=== PATIENT | female | born 1950 | race Caucasian/White ===

== ENCOUNTER 2016-12-10 12:09 | Emergency (ER) | payer OTHER, MEDICAID ==
[~2016-12-10] VITALS: Ht 152.4 cm; Wt 65.8 kg
[~2016-12-10 12:09] MED LIST: ECOTRIN325 MG PO; GLUCOPHAGE1000 MG PO; MOTRIN800 MG PO; [UNRECOGNIZED DRUG - OTHER] PO
[2016-12-10 12:18] VITALS: BP 127/76
--- NOTE | 2016-12-10 12:22 | NUR ---
Patient transferred to bed 3 via wheelchair by tech, accompanied by family. RN evaluating patient at bedside.
--- NOTE | 2016-12-10 12:25 | NUR ---
PT BIB SON FOR EVALUATION OF HEADACHE X2 DAYS. HX DM, HTN, ARTHRITIS; DENIES V/D; SKIN IS PINK/WARM/DRY; AAOX4 WITH EVEN AND STEADY GAIT; LUNGS CLEAR BL; HR EVEN AND REGULAR; PT DENIES ANY FEVER, CP, SOB, OR COUGH AT THIS TIME; PATIENT STATES PAIN OF 8/10 AT THIS TIME; VSS; PATIENT POSITIONED FOR COMFORT; HOB ELEVATED; BEDRAILS UP X2; BED DOWN. ER MD MADE AWARE OF PT STATUS.
--- NOTE | 2016-12-10 12:41 | NUR ---
PT TAKEN TO CT FOR THE HEAD VIA WHEEL CHAIR BY TUFTER OPERATOR MELANY
[2016-12-10] MEDS ORDERED: ONDANSETRON 4 MG ODT PO ONE (13:10)
[2016-12-10] MEDS ORDERED: fentaNYL 0.05 MG/ML VIAL IM ONE (13:10)
[2016-12-10] MEDS ORDERED: NACL 0.9% 500 ML IV ONE (13:41)
--- NOTE | 2016-12-10 14:00 | NUR ---
RECIEVED FROM LAB BS 488 DR DELGADO NOTIFIED
[2016-12-10] MEDS ORDERED: fentaNYL 0.05 MG/ML VIAL IVP ONE (14:15)
--- NOTE | 2016-12-10 14:20 | NUR ---
given fentanyl 50mcg ivp,wasted 50mcg.showed remaining med. in vial to melissa lopez rn.
[2016-12-10] MEDS ORDERED: INSULIN HUMAN REGULAR 100 UNITS/ML 10 ML VIAL IVP ONE (14:30)
[2016-12-10 14:38] VITALS: BP 141/88
[2016-12-10] MEDS ORDERED: INSULIN HUMAN REGULAR 100 UNITS/ML 10 ML VIAL SUBQ ONE (15:25)
--- NOTE | 2016-12-10 15:38 | NUR ---
BS 357 AFTER INSULIN ADMINISTRATION, PT REFUSE TO WAIT, PT SAYS WILL CHECK HER BLOOD SUGAR AT HOME AND WILL SELF ADMINISTER INSULIN AT HOME IF NEEDED PER PT, DR DELGADO NOTIFIED
--- NOTE | 2016-12-10 15:38 | NUR ---
Patient discharged with B/S OF 357. PT REFUSE TO WAIT AFTER INSULIN ADMINISTRATION DUE TO HER RIDE IS HERE NOW, WILL CHECK HER BS AT HOME AND WILL SELF ADMINISTER INSULIN AT HOME PER PT. DR DELGADO NOTIFIED. Written and verbal after care instructions given and explained. Patient alert, oriented and verbalized understanding of instructions. Ambulatory with steady gait. All questions addressed prior to discharge. ID band removed. Patient advised to follow up with PMD. Rx of TRAMADOL given. Patient educated on indication of medication including possible reaction and side effects. Opportunity to ask questions provided and answered.
== END 2016-12-10 15:38 | disposition home or self-care (01) ==
LOC: MED 12:09
DX: S16.1XXA Strain of muscle, fascia and tendon at neck level, initial encounter (principal); S29.012A Strain of muscle and tendon of back wall of thorax, initial encounter; I10 Essential (primary) hypertension; E11.65 Type 2 diabetes mellitus with hyperglycemia; Z88.0 Allergy status to penicillin; Z79.82 Long term (current) use of aspirin; X58.XXXA Exposure to other specified factors, initial encounter; Y93.89 Activity, other specified; Y92.89 Other specified places as the place of occurrence of the external cause; Y99.8 Other external cause status
CPT/HCPCS: 36415; 70450; 71010; 80053; 82009; 82948; 85025; 96361; 96372; 96374; 99285; J1815; J7030; Q0092; S0119

== ENCOUNTER 2017-05-15 23:55 | Emergency (ER) | payer MEDICARE, MEDICAID ==
[~2017-05-15] VITALS: Ht 157.5 cm; Wt 67.1 kg
[~2017-05-15 23:55] MED LIST changes: +ASPI-1052 PO; -ECOTRIN325 MG PO; -GLUCOPHAGE1000 MG PO; +IBUP-974 PO; +METF1000 PO; -MOTRIN800 MG PO
[2017-05-16 00:02] VITALS: BP 158/87
--- NOTE | 2017-05-16 00:11 | NUR ---
PT. AMBULATES TO ER BED 6
--- NOTE | 2017-05-16 00:17 | NUR ---
66 Y/O F W/C/O DIZZINESS, NAUSEA X 3 DAYS AND VOMITING X TODAY. PT STATES FELL X 1999 LAST NIGHT WHILE TRYING TO USE THE RESTROOM, DENIES ANY LOC, C/O R KNEE, R SHOULDER PAIN AND LIGHT HEADACHE X LAST NIGHT S/P FALL. ON MONITOR, ER MADE AWARE.
--- NOTE | 2017-05-16 00:35 | NUR ---
Patient being evaluated by Dr. Thomas at bedside.
[2017-05-16] MEDS ORDERED: NACL 0.9% 1,000 ML IV ONE (00:50)
[2017-05-16 00:56] LABS: WHITE BLOOD COUNT (AUTO) 8.8 K/uL (4.8-10.8)
--- NOTE | 2017-05-16 01:04 | NUR ---
PT TAKEN TO CT
[2017-05-16 01:08] LABS: PROTHROMBIN TIME 10.4 secs (10.8-13.4)
[2017-05-16 01:16] LABS: ALBUMIN 3.8 g/dL (3.4-5.0); ANION GAP 14.2 (8-16); CARBON DIOXIDE 25.6 mmol/L (21-32); CREATININE 0.8 mg/dL (0.6-1.3); HEMATOCRIT 42.5 % (36-48); HEMOGLOBIN 13.7 g/dL (12.0-16.0); MEAN CORPUSCULAR HEMOGLOBIN 28 pg (27-31); MEAN CORPUSCULAR HGB CONC 32 g/dL (33-37); MEAN CORPUSCULAR VOLUME 88 fL (80-94); PLATELET COUNT (AUTO) 265 K/uL (140-450); POTASSIUM 3.8 mmol/L (3.5-5.1); RED BLOOD CELL COUNT(AUTO) 4.83 MIL/uL (4.20-5.40); RED CELL DISTRIBUTION WIDTH 12.2 % (11.6-13.7); TOTAL BILIRUBIN 0.4 mg/dL (0.0-1.0)
--- NOTE | 2017-05-16 01:25 | NUR ---
PT RETURN FROM CT
[2017-05-16] MEDS ORDERED: INSULIN HUMAN REGULAR 100 UNITS/ML 10 ML VIAL SUBQ ONE (01:30)
[2017-05-16 01:31] LABS: APPEARANCE,URINE CLEAR (CLEAR); BILIRUBIN,URINE NEGATIVE (NEGATIVE); BLOOD, URINE TRACE-L (NEGATIVE); COLOR,URINE YELLOW (YELLOW); LEUKOCYTE ESTERASE ,URINE NEGATIVE (NEGATIVE); NITRITE, URINE NEGATIVE (NEGATIVE); UGLUCOSE 3+ (NEGATIVE)
[2017-05-16] MEDS ORDERED: ONDANSETRON 4 MG/2 ML VIAL IVP ONE ×2 (01:35→02:55)
[2017-05-16 01:36] LABS: LYMPHOCYTES % (MANUAL) 27 % (20-46); MONOCYTES % (MANUAL) 5 % (5-12)
[2017-05-16 01:45] LABS: RBC,URINE 0-5 (RARE) /HPF (0-5); YEAST,URINE Rare /HPF (None Seen)
--- NOTE | 2017-05-16 02:17 | NUR ---
Patient appears to be resting comfortably in bed. Vital Signs within normal limits. Respirations even and unlabored.
[2017-05-16 03:20] VITALS: BP 161/84
--- NOTE | 2017-05-16 03:20 | NUR ---
Patient discharged with v/s stable. Written and verbal after care instructions given and explained. Patient alert, oriented and verbalized understanding of instructions. Wheel Chair Assisted with by caregiver. All questions addressed prior to discharge. ID band removed. Patient advised to follow up with PMD IN 2-3 DAYS. Rx of ZOFRAN, AND MECLIZINE given. Patient educated on indication of medication including possible reaction and side effects. Opportunity to ask questions provided and answered.
== END 2017-05-16 03:20 | disposition home or self-care (01) ==
LOC: MED 23:55
DX: S09.8XXA Other specified injuries of head, initial encounter (principal); E11.65 Type 2 diabetes mellitus with hyperglycemia; I10 Essential (primary) hypertension; E78.5 Hyperlipidemia, unspecified; Z79.82 Long term (current) use of aspirin; Z79.899 Other long term (current) drug therapy; Z88.0 Allergy status to penicillin; W01.198A Fall on same level from slipping, tripping and stumbling with subsequent striking against other object, initial encounter; Y93.89 Activity, other specified; Y92.89 Other specified places as the place of occurrence of the external cause; Y99.8 Other external cause status
CPT/HCPCS: 36415; 70450; 80053; 81001; 85025; 85610; 87086; 96361; 96372; 96374; 96376; 99285; J1815; J2405

== ENCOUNTER 2017-07-24 21:23 | Inpatient (IN) | payer MEDICARE, MEDICAID ==
[~2017-07-24] VITALS: Ht 149.9 cm; Wt 64.0 kg
[2017-07-24 21:28] VITALS: BP 110/86
--- NOTE | 2017-07-24 21:57 | NUR ---
TO ER BED 3
--- NOTE | 2017-07-24 22:03 | NUR ---
66Y F BIB FAMILY C/O HEADACHE AND AB PAIN X 1 DAY WITH VOMITING. PT STATES HER INSULIN WAS JUST CHANGED SO SHE CANNOT RECALL THE NAME. PT DENIES ANY SOB/CP AT THE MOMENT. PT IS ALERT AND ORIENTED. PT WHEELCHAIR ASSISTED TO ER BED 3. PT BREATHING IS EVEN AND UNLABORED.
[2017-07-24] MEDS ORDERED: LISI2.5T12 PO (22:08)
[2017-07-24] MEDS ORDERED: ATOR20TA PO (22:08)
[2017-07-24] MEDS ORDERED: INSULIN HUMAN REGULAR 100 UNITS/ML 10 ML VIAL IVP ONE (22:10)
[2017-07-24] MEDS ORDERED: NACL 0.9% 1,000 ML IV ONE (22:10)
[2017-07-24 22:38] LABS: APPEARANCE,URINE SL CLOUDY (CLEAR); BILIRUBIN,URINE NEGATIVE (NEGATIVE); BLOOD, URINE TRACE-L (NEGATIVE); COLOR,URINE YELLOW (YELLOW); LEUKOCYTE ESTERASE ,URINE NEGATIVE (NEGATIVE); NITRITE, URINE POSITIVE (NEGATIVE); PH,URINE 5.5 (5.0-9.0); UGLUCOSE 3+ (NEGATIVE)
[2017-07-24 23:05] LABS: BASOPHILS # (AUTO) 0.1 K/uL (0.00-0.22); BASOPHILS % (AUTO) 1.8 % (0.0-2.0); EOSINOPHILS # (AUTO) 0.1 K/uL (0-0.4); HEMATOCRIT 36.2 % (36-48); HEMOGLOBIN 12.4 g/dL (12.0-16.0); LYMPHOCYTES # (AUTO) 1.1 K/uL (2.5-16.5); LYMPHOCYTES % (AUTO) 13.4 % (20.5-51.1); MEAN CORPUSCULAR HEMOGLOBIN 30 pg (27-31); MEAN CORPUSCULAR HGB CONC 34 g/dL (33-37); MEAN CORPUSCULAR VOLUME 86 fL (80-94); MONOCYTES # (AUTO) 0.3 K/uL (0.8-1.0); MONOCYTES % (AUTO) 3.8 % (1.7-9.3); NEUTROPHILS # (AUTO) 6.5 K/uL (1.8-7.7); PLATELET COUNT (AUTO) 221 K/uL (140-450); RED CELL DISTRIBUTION WIDTH 12.4 % (11.6-13.7); WHITE BLOOD COUNT (AUTO) 8.1 K/uL (4.8-10.8)
[2017-07-24 23:21] LABS: RBC,URINE 0-5 (RARE) /HPF (0-5); WBC,URINE 0-5 (RARE) /HPF (0-5)
[2017-07-24 23:22] LABS: YEAST,URINE Many /HPF (None Seen)
[2017-07-24 23:23] LABS: ANION GAP 15.9 (8-16); CARBON DIOXIDE 24.1 mmol/L (21-32); CREATININE 0.8 mg/dL (0.6-1.3)
[2017-07-24 23:29] LABS: ALBUMIN 2.9 g/dL (3.4-5.0); TOTAL BILIRUBIN 0.3 mg/dL (0.0-1.0)
[2017-07-25] MEDS: NACL 0.9% 1,000 ML IV SCH ×3 (00:26→23:42)
[2017-07-25] MEDS ORDERED: HYDROcodone/APAP 7.5/325 MG 1 TAB PO PRN (00:30)
[2017-07-25] MEDS ORDERED: ONDANSETRON 4 MG/2 ML VIAL IVP PRN (00:30)
[2017-07-25] MEDS ORDERED: ACETAMINOPHEN 325 MG TAB PO PRN (00:30)
[2017-07-25] MEDS ORDERED: DEXTROSE 50% 50 ML SYR IVP PRN (00:35)
[2017-07-25] MEDS ORDERED: FLUCONAZOLE 100 MG TAB PO ONE (00:45)
[2017-07-25] MEDS ORDERED: cefTRIAXone 1,000 MG VIAL ONE (00:50)
--- NOTE | 2017-07-25 00:50 | NUR ---
UNABLE TO DO EKG, PT STILL IN ER
--- NOTE | 2017-07-25 00:51 | NUR ---
Patient will be admitted to care of DR ROSADO. Admited to TELE 122B. Will go to room 122B. Belongings list completed. Report to ABBE FAUSTIN .
[2017-07-25 00:57] LABS: BARBITURATE, URINE NEG. ng/ml (NEG <=200); BENZODIAZEPINE, URINE NEG. ng/mL (NEG <=200); CANNABINOID, URINE NEG. ng/mL (NEG <=50); COCAINE, URINE NEG. ng/mL (NEG <=300); OPIATE, URINE NEG. ng/mL (NEG <=2000); PHENCYCLIDINE SCREEN,URINE NEG. ng/mL (NEG <=25)
[2017-07-25 01:00] VITALS: BP 114/73
--- NOTE | 2017-07-25 01:00 | NUR ---
PT ARRIVED FROM ER VIA GURNEY. PT IS AWAKE, ALERT AND ORIENTED X4. ON ROOM AIR. RESPIRATIONS EVEN AND UNLABORED. NO SIGNS OF ACUTE DISTRESS. UNSTEADY GATE. IV ACCESS INTACT, PATENT AND ASYMPTOMATIC. SKIN COLOR APPROPRIATE TO ETHNICITY, SKIN TEMP WARM TO TOUCH. MRSA NARES COLLECTED. PLAN OF CARE DISCUSSED, PT VERBALIZED UNDERSTANDING. BED IN LOW POSITION, BILATERAL HALF SIDE RAILS UP, CALL LIGHT WITHIN REACH, WILL CONTINUE TO MONITOR.
[2017-07-25 01:06] LABS: FREE T4 (FREE THYROXINE) 0.96 ng/dL (0.76-1.46); MAGNESIUM 1.4 mg/dL (1.8-2.4); THYROID STIMULATING HORMONE 1.54 uIU/mL (0.34-3.74)
--- NOTE | 2017-07-25 03:30 | NUR ---
ASSISTED PT TO THE RESTROOM. PT ABLE TO VOID. TOLERATED WELL, BACK IN BED. BED IN LOW POSITION, BILATERAL HALF SIDE RAILS UP, CALL LIGHT WITHIN REACH, WILL CONTINUE TO MONITOR.
[2017-07-25 04:00] VITALS: BP 122/66
[2017-07-25 06:08] LABS: BASOPHILS # (AUTO) 0.2 K/uL (0.00-0.22); BASOPHILS % (AUTO) 3.4 % (0.0-2.0); EOSINOPHILS # (AUTO) 0.1 K/uL (0-0.4); HEMATOCRIT 36.3 % (36-48); HEMOGLOBIN 12.3 g/dL (12.0-16.0); LYMPHOCYTES # (AUTO) 1.9 K/uL (2.5-16.5); LYMPHOCYTES % (AUTO) 28.1 % (20.5-51.1); MEAN CORPUSCULAR HEMOGLOBIN 30 pg (27-31); MEAN CORPUSCULAR HGB CONC 34 g/dL (33-37); MEAN CORPUSCULAR VOLUME 87 fL (80-94); MONOCYTES # (AUTO) 0.5 K/uL (0.8-1.0); MONOCYTES % (AUTO) 7.2 % (1.7-9.3); NEUTROPHILS # (AUTO) 4.1 K/uL (1.8-7.7); NEUTROPHILS % (AUTO) 60.3 % (42.2-75.2); PLATELET COUNT (AUTO) 225 K/uL (140-450); RED BLOOD CELL COUNT(AUTO) 4.15 MIL/uL (4.20-5.40); RED CELL DISTRIBUTION WIDTH 12.7 % (11.6-13.7); WHITE BLOOD COUNT (AUTO) 6.9 K/uL (4.8-10.8)
[2017-07-25 06:32] LABS: ANION GAP 10.4 (8-16); CREATININE 0.6 mg/dL (0.6-1.3); POTASSIUM 3.4 mmol/L (3.5-5.1)
[2017-07-25] MEDS: BLOOD GLUCOSE MONITORING 1 DEV DEV FS SCH ×4 (06:34→20:39)
[2017-07-25 06:37] LABS: MAGNESIUM 1.4 mg/dL (1.8-2.4); PHOSPHORUS 3.1 mg/dL (2.5-4.9)
[2017-07-25] MEDS: INSULIN LISPRO SLIDING SCALE 100 UNITS/ML VIAL SUBQ PRN ×4 (06:37→20:49)
--- NOTE | 2017-07-25 07:20 | NUR ---
ENDORSED PT TO AM NURSE FOR CONTINUITY OF CARE. PT IS IN STABLE CONDITION.
--- NOTE | 2017-07-25 07:25 | NUR ---
RECEIVED PT REPORT AT BEDSIDE FROM NIGHT NURSE. PT IS AAOX4 AND SHOWS NO S/S OF ACUTE DISTRESS RA. PT IS AROUSABLE TO NAME AND DENIES PAIN. PT SKIN IS INTACT. PT ON TELE MONITOR. IV NOTED ON THE LT AC WITH IVF'S INFUSING WELL. IV IS PATENT AND INTACT WITH NO SIGNS OF INFILTRATION. PT WAS EXPLAINED POC FOR TODAY AND VERBALIZE UNDERSTANDING. THE BED IS IN LOW POSITION WITH CALL LIGHT WITHIN REACH. ALL NEED'S MET AT THIS TIME. WILL CONTINUE TO MONITOR.
[2017-07-25 08:00] VITALS: BP 111/68
[2017-07-25] MEDS ORDERED: MAG SULF 2000 MG/WATER PREMIX 50 ML IV SCH (08:00)
[2017-07-25] MEDS ORDERED: POTASSIUM CHLORIDE 10 MEQ TABER PO SCH (08:00)
--- NOTE | 2017-07-25 08:30 | NUR ---
PT IS BEING SEE BY TECH
[2017-07-25] MEDS: metFORMIN 500 MG TAB PO SCH ×2 (08:47→16:41)
[2017-07-25] MEDS: DOCUSATE SODIUM 100 MG GELCAP PO SCH ×2 (08:48→20:40)
[2017-07-25] MEDS: LISINOPRIL 5 MG TAB PO SCH (08:48)
[2017-07-25] MEDS: LACTOBACILLUS RHAMNOSUS GG 1 EACH CAP PO SCH (08:48)
--- NOTE | 2017-07-25 08:50 | NUR ---
ADMINISTERED SCHEDULED MEDICATIONS. PT TOLERATED ACTIVITY WELL. PT MAGNESIUM IS INFUSING WELL.
--- NOTE | 2017-07-25 09:11 | NUR ---
PATIENT HAS BEEN SCREENED AND CATEGORIZED MODERATE NUTRITION RISK. PATIENT WILL BE SEEN WITHIN 3-5 DAYS OF ADMISSION. 07/27/17-07/29/[address]
--- NOTE | 2017-07-25 09:48 | NUR ---
CM NOTE PER MO OF [facility] PH# [phone] EXT [phone], REVIEWS SHOULD ONLY BE SENT TO [facility] FAX# [phone] AND FOR ANY DISCHARGE NEEDS TO FAX TO [facility] FAX# [phone]. SPOKE WITH JEAN-PAUL OF [facility] PH# [phone] AND SHE SAID [facility] DON'T NEED THE REVIEWS AND REVIEWS SHOULD ONLY BE SENT TO [facility]. INITIAL REVIEW FAXED TO [facility] [phone] ATTN: MALIA PH# [phone] EXT [phone].
--- NOTE | 2017-07-25 10:00 | NUR ---
PT BEING SEEN BY SHEET ROCK APPLICATOR
[2017-07-25 12:00] VITALS: BP 125/71
--- NOTE | 2017-07-25 12:30 | NUR ---
PT IS SLEEPING AND SHOWS NO S/S OF ACUTE DISTRESS ON ROOM AIR. PT DENIES PAIN. WILL CONTINUE TO MONITOR.
--- NOTE | 2017-07-25 14:10 | NUR ---
PT HAS FAMILY AT BEDSIDE AND SHOWS NO S/S OF ACUTE DISTRESS ON ROOM AIR. BED IN LOW POSITION WITH CALL LIGHT WITHIN REACH.
[2017-07-25] MEDS ORDERED: ASPIRIN 81 MG TAB.CHEW PO SCH (14:20)
--- NOTE | 2017-07-25 15:55 | NUR ---
SPOKE WITH SUGAR TRUCKER AT DR INES SEAMAN OFFICE AT [phone] FOR PATIENT'S ORDER FOR MEDICATION LIST. SUGAR TRUCKER STATED SHE WILL SEND OVER MEDICATION LIST THROUGH FAX.
[2017-07-25 16:00] VITALS: BP 117/70
--- NOTE | 2017-07-25 18:00 | NUR ---
PT IS RESTING AND SHOWS NO S/S OF ACUTE DISTRESS ON ROOM AIR. ALL OF PT'S NEEDS MET AT THIS TIME. WILL CONTINUE TO MONITOR.
--- NOTE | 2017-07-25 19:25 | NUR ---
PT REPORT GIVEN TO NIGHT NURSE AT BEDSIDE. PT ENDORSED IN STABLE CONDITION.
--- NOTE | 2017-07-25 19:30 | NUR ---
RECEIVE DPT IN STABLE CONDITION FROM AM NURSE. AWAKE,ALERT AND ORIENTED X4, LITHUANIAN SPEAKING. WITH FAMILY MEMBERS AT BEDSIDE. ON TELE MONITOR -SR. NO C/O ANY DISCOMFORT NOR PAIN NOTED. HAS IVF INFUSING WELL ON THE LT AC#20. PLAN OF CARE DISCUSSED AND VERBALIZED UNDERSTANDING. BED ON LOW POSITION. CALL LIGHT PLACED WITHIN EASY REACH. INSTRUCTED TO CALL IF NEED ASSISTANCE. WILL CONTINUE TO MONITOR.
[2017-07-25 19:45] VITALS: BP 113/63
--- NOTE | 2017-07-25 20:05 | NUR ---
IV ACCESS ON THE LT AC #20 INFILTRATED. DISCONTINUED. STARTED A NEW IV ON THE LT HAND $22. CLEAR AND PATENT.
[2017-07-25] MEDS: ATORVASTATIN 20 MG TAB PO SCH (20:40)
--- NOTE | 2017-07-25 20:49 | NUR ---
BLOOD SUGAR WAS CHECKED RESULT 177. INSULIN COVERAGE GIVEN. PROVIDED SOME SNACK. WILL CONTINUE WITH CURRENT PLAN OF CARE.
[2017-07-25] MEDS ORDERED: INSULIN DETEMIR 100 UNITS/ML 10 ML VIAL SUBQ SCH ×3 (21:00)
--- NOTE | 2017-07-25 21:30 | NUR ---
PT JUST FINISHED EATING CRACKERS AND MILK FOR SNACK TONIGHT.
[2017-07-26] VITALS: BP 118/67
--- NOTE | 2017-07-26 01:00 | NUR ---
SLEEPING AT THIS TIME. NO S/S OF ANY DISCOMFORT NOR PAIN NOTED.
[2017-07-26 04:00] VITALS: BP 132/74
--- NOTE | 2017-07-26 04:00 | NUR ---
SLEPT WELL DURING THE NIGHT. NO S/S OF ANY DISCOMFORT NOTED.
[2017-07-26] MEDS: BLOOD GLUCOSE MONITORING 1 DEV DEV FS SCH ×4 (06:04→20:56)
[2017-07-26] MEDS: INSULIN LISPRO SLIDING SCALE 100 UNITS/ML VIAL SUBQ PRN ×4 (06:05→20:59)
--- NOTE | 2017-07-26 06:05 | NUR ---
BLOOD SUGAR THIS AM 197. INSULIN COVERAGE SUBQ GIVEN.
[2017-07-26 06:16] LABS: BASOPHILS # (AUTO) 0.3 K/uL (0.00-0.22); BASOPHILS % (AUTO) 4.7 % (0.0-2.0); EOSINOPHILS # (AUTO) 0.2 K/uL (0-0.4); EOSINOPHILS % (AUTO) 3.3 % (0.0-4.0); HEMATOCRIT 36.4 % (36-48); HEMOGLOBIN 12.1 g/dL (12.0-16.0); LYMPHOCYTES # (AUTO) 2.2 K/uL (2.5-16.5); MEAN CORPUSCULAR HEMOGLOBIN 29 pg (27-31); MEAN CORPUSCULAR HGB CONC 33 g/dL (33-37); MEAN CORPUSCULAR VOLUME 88 fL (80-94); MONOCYTES # (AUTO) 0.5 K/uL (0.8-1.0); MONOCYTES % (AUTO) 8.6 % (1.7-9.3); NEUTROPHILS # (AUTO) 2.3 K/uL (1.8-7.7); NEUTROPHILS % (AUTO) 42.4 % (42.2-75.2); PLATELET COUNT (AUTO) 240 K/uL (140-450); RED BLOOD CELL COUNT(AUTO) 4.13 MIL/uL (4.20-5.40); RED CELL DISTRIBUTION WIDTH 13.1 % (11.6-13.7); WHITE BLOOD COUNT (AUTO) 5.5 K/uL (4.8-10.8)
[2017-07-26 06:33] LABS: ANION GAP 10.6 (8-16); CARBON DIOXIDE 27.4 mmol/L (21-32); CREATININE 0.6 mg/dL (0.6-1.3)
[2017-07-26 06:36] LABS: MAGNESIUM 1.6 mg/dL (1.8-2.4); PHOSPHORUS 3.1 mg/dL (2.5-4.9)
--- NOTE | 2017-07-26 07:28 | NUR ---
ENDORSED PT IN STABLE CONDITION TO AM NURSE.
--- NOTE | 2017-07-26 07:32 | NUR ---
RECEIVED REPORT FROM NIGHT RN. PT RESTING IN BED. AAOX4. NO S/S OF ACUTE DISTRESS. PT DENIES PAIN. IV SITE PATENT AND INTACT. PLAN OF CARE DISCUSSED WITH PT. PT VERBALIZED UNDERSTANDING. TELE BOX IN PLACE. CALL LIGHT WITHIN REACH. SAFETY MEASURES ENSURED. WILL CONTINUE TO MONITOR.
[2017-07-26 08:00] VITALS: BP 132/85
[2017-07-26] MEDS ORDERED: MAG SULF 2000 MG/WATER PREMIX 50 ML IV SCH (08:00)
[2017-07-26] MEDS: LACTOBACILLUS RHAMNOSUS GG 1 EACH CAP PO SCH (08:35)
[2017-07-26] MEDS: DOCUSATE SODIUM 100 MG GELCAP PO SCH ×2 (08:35→20:54)
[2017-07-26] MEDS: metFORMIN 500 MG TAB PO SCH ×2 (08:35→17:37)
[2017-07-26] MEDS: ASPIRIN 81 MG TAB.CHEW PO SCH (08:35)
[2017-07-26] MEDS: LORATADINE 10 MG TAB PO SCH (08:35)
[2017-07-26] MEDS: LISINOPRIL 5 MG TAB PO SCH (08:36)
--- NOTE | 2017-07-26 09:16 | NUR ---
AM MEDICATIONS GIVEN WITH EDUCATION. PT VERBALIZED UNDERSTANDING. PT TOLERATED WELL. CALL LIGHT WITHIN REACH. SAFETY MEASURES ENSURED. WILL CONTINUE TO MONITOR.
[2017-07-26 12:00] VITALS: BP 132/85
--- NOTE | 2017-07-26 12:43 | NUR ---
PT RESTING IN BED. NO S/S OF ACUTE DISTRESS. PT DENIES PAIN. CALL LIGHT WITHIN REACH. WILL CONTINUE TO MONITOR.
[2017-07-26] MEDS ORDERED: FLUCONAZOLE 100 MG/NS PREMIX 50 ML IV SCH (13:00)
--- NOTE | 2017-07-26 13:28 | NUR ---
review faxed to [facility] at [phone]
--- NOTE | 2017-07-26 14:56 | NUR ---
PT RESTING IN BED. NO S/S OF ACUTE DISTRESS. PT DENIES PAIN. CALL LIGHT WITHIN REACH. SAFETY MEASURES ENSURED. WILL CONTINUE TO MONITOR.
[2017-07-26 16:00] VITALS: BP 125/73
--- NOTE | 2017-07-26 19:16 | NUR ---
ENDORSED PLAN OF CARE TO NIGHT RN. PT REMAINS STABLE.
--- NOTE | 2017-07-26 19:25 | NUR ---
RECEIVED PT IN STABLE CONDITION FROM AM NURSE. AWAKE,ALERT, ORIENTED X4. SUDANESE SPEAKING . ON TELE MONITOR-SR. WITH NO C/O ANY DISCOMFORT NOR PAIN NOTED. HAS IVF INFUSING WELL ON THE LT HAND#22. PLAN OF CARE DISCUSSED AND VERBALIZED UNDERSTANDING. BED ON LOW POSITION, CALL LIGHT PLACED WITHIN EASY REACH. WITH BLE SCD MACHINE. INSTRUCTED PT TO CALL FOR ASSISTANCE. WILL CONTINUE TO MONITOR.
[2017-07-26 19:45] VITALS: BP 124/73
[2017-07-26] MEDS: SODIUM CHLORIDE FLUSH 10 ML SYR IVF SCH (20:54)
[2017-07-26] MEDS: ATORVASTATIN 20 MG TAB PO SCH (20:54)
[2017-07-26] MEDS: INSULIN DETEMIR 100 UNITS/ML 10 ML VIAL SUBQ SCH (20:58)
--- NOTE | 2017-07-26 20:59 | NUR ---
BLOOD SUGAR WAS CHECKED RESULT 176. INSULIN COVERAGE SUBQ GIVEN. PROVIDED WITH HS SNACK . WILL CONTINUE TO MONITOR. Addendum: 07/27/17 at 0059 by Jasmin Llamas RN BLOOD SUGAR WAS 178 INSTEAD OF 176.
--- NOTE | 2017-07-26 22:00 | NUR ---
IV ACCESS ON TH LT HAND LEAKING ,INFILTRATED. DISCONTINUED. ABLE TO START A NEW IV ACCESS ON THE LT WRIST G#22. HL CLEAR AND PATENT.
[2017-07-27 00:09] VITALS: BP 138/76
--- NOTE | 2017-07-27 02:00 | NUR ---
MADE ROUNDS. SLEEPING AT THIS TIME. NO S/S OF ANY DISCOMFORT NOTED.
[2017-07-27 03:45] VITALS: BP 125/69
--- NOTE | 2017-07-27 04:30 | NUR ---
SLEEPING AT THIS TIME. NO S/S OF ANY DISCOMFORT NOR PAIN NOTED.
[2017-07-27] MEDS: SODIUM CHLORIDE FLUSH 10 ML SYR IVF SCH ×3 (05:14→21:00)
--- NOTE | 2017-07-27 06:00 | NUR ---
BLOOD SUGAR WAS CHECKED THIS AM RESULT 143. NO INSULIN NEEDED.
[2017-07-27 06:17] LABS: BASOPHILS # (AUTO) 0.3 K/uL (0.00-0.22); BASOPHILS % (AUTO) 4.4 % (0.0-2.0); EOSINOPHILS # (AUTO) 0.2 K/uL (0-0.4); HEMOGLOBIN 12.5 g/dL (12.0-16.0); LYMPHOCYTES # (AUTO) 2.4 K/uL (2.5-16.5); MEAN CORPUSCULAR HEMOGLOBIN 30 pg (27-31); MEAN CORPUSCULAR HGB CONC 34 g/dL (33-37); MEAN CORPUSCULAR VOLUME 88 fL (80-94); MONOCYTES # (AUTO) 0.5 K/uL (0.8-1.0); MONOCYTES % (AUTO) 7.1 % (1.7-9.3); NEUTROPHILS % (AUTO) 47.5 % (42.2-75.2); PLATELET COUNT (AUTO) 242 K/uL (140-450); RED BLOOD CELL COUNT(AUTO) 4.21 MIL/uL (4.20-5.40); RED CELL DISTRIBUTION WIDTH 12.7 % (11.6-13.7); WHITE BLOOD COUNT (AUTO) 6.4 K/uL (4.8-10.8)
[2017-07-27] MEDS: BLOOD GLUCOSE MONITORING 1 DEV DEV FS SCH ×4 (06:22→20:42)
[2017-07-27 06:24] LABS: ANION GAP 13.5 (8-16); CARBON DIOXIDE 25.2 mmol/L (21-32); CREATININE 0.6 mg/dL (0.6-1.3); POTASSIUM 3.7 mmol/L (3.5-5.1)
[2017-07-27] MEDS ORDERED: MAG SULF 2000 MG/WATER PREMIX 50 ML IV ONE (07:20)
--- NOTE | 2017-07-27 07:20 | NUR ---
ENDORSED PT IN STABLE CONDITION TO AM NURSE.
--- NOTE | 2017-07-27 07:21 | NUR ---
RECEIVED REPORT FROM ARCHITECT NAVAL NURSE. PATIENT IN STABLE CONDITION, NO DISTRESS NOTED. DENIES ANY PAIN AT THIS TIME. AAOX4, CALM, COOPERATIVE, SKIN COLOR APPROPRIATE TO ETHNICITY, WARM TO TOUCH. LUNGS CTA ON ALL LOBES. ABDOMEN FLAT, NON-TENDER, NON-DISTENDED. SKIN IS INTACT. IV IS INTACT, PATENT, ON SALINE LOCK. REVIEWED PLAN OF CARE WITH PATIENT. PATIENT VERBALIZED UNDERSTANDING. SAFETY MEASURES IN PLACE, CALL LIGHT WITHIN REACH. WILL CONTINUE TO MONITOR PATIENT.
[2017-07-27 08:00] VITALS: BP 136/76
[2017-07-27] MEDS: LISINOPRIL 5 MG TAB PO SCH (08:52)
[2017-07-27] MEDS: DOCUSATE SODIUM 100 MG GELCAP PO SCH ×2 (08:52→21:19)
[2017-07-27] MEDS: metFORMIN 500 MG TAB PO SCH ×2 (08:52→17:00)
[2017-07-27] MEDS: ASPIRIN 81 MG TAB.CHEW PO SCH (08:52)
[2017-07-27] MEDS: LORATADINE 10 MG TAB PO SCH (08:52)
[2017-07-27] MEDS: LACTOBACILLUS RHAMNOSUS GG 1 EACH CAP PO SCH (08:53)
--- NOTE | 2017-07-27 10:57 | NUR ---
CM NOTE CONCURRENT REVIEW FAXED TO [facility] [phone] ATTN: MALIA # [phone] [phone].
[2017-07-27 12:00] VITALS: BP 115/65
[2017-07-27] MEDS: INSULIN LISPRO SLIDING SCALE 100 UNITS/ML VIAL SUBQ PRN ×2 (12:52→21:19)
--- NOTE | 2017-07-27 12:57 | NUR ---
PATIENT SITTING IN BED COMFORTABLY. NO DISTRESS NOTED. DENIES ANY PAIN. CONDITION UNCHANGED. MEDICATIONS DUE GIVEN. SAFETY MEASURES IN PLACE, CALL LIGHT WITHIN REACH. WILL CONTINUE TO MONITOR.
[2017-07-27 16:00] VITALS: BP 123/71
--- NOTE | 2017-07-27 17:01 | NUR ---
PATIENT SITTING IN BED WATCHING TV. NO DISTRESS NOTED. DENIES ANY PAIN. CONDITION UNCHANGED. MEDICATIONS DUE GIVEN. SAFETY MEASURES IN PLACE, CALL LIGHT WITHIN REACH. WILL CONTINUE TO MONITOR.
--- NOTE | 2017-07-27 18:30 | NUR ---
PATIENT LYING IN BED SLEEPING. AROUSABLE BY VOICE. NO DISTRESS NOTED. CONDITION UNCHANGED. SAFETY MEASURES IN PLACE, CALL LIGHT WITHIN REACH. WILL CONTINUE TO MONITOR.
--- NOTE | 2017-07-27 19:24 | NUR ---
GAVE REPORT TO THERMAL SPRAY OPERATOR NURSE FOR CONTINUITY OF CARE. PATIENT IN STABLE CONDITION.
--- NOTE | 2017-07-27 19:31 | NUR ---
RECIEVED PATIENT ON BED ALERT AND OREINTED X4 BREATHING EVEN AND UNLABORED ON ROOM AIR. WILL CONTINUE MONITOR PATIENT.
[2017-07-27 20:00] VITALS: BP 122/62
[2017-07-27] MEDS: INSULIN DETEMIR 100 UNITS/ML 10 ML VIAL SUBQ SCH (21:17)
[2017-07-27] MEDS: ATORVASTATIN 20 MG TAB PO SCH (21:20)
[2017-07-28] VITALS: BP 123/80
[2017-07-28 04:00] VITALS: BP 122/58
[2017-07-28] MEDS: SODIUM CHLORIDE FLUSH 10 ML SYR IVF SCH (05:00)
--- NOTE | 2017-07-28 06:51 | NUR ---
NO COMPLAINTS OVERNIGHT STABLE.
[2017-07-28] MEDS: BLOOD GLUCOSE MONITORING 1 DEV DEV FS SCH ×2 (07:23→11:57)
--- NOTE | 2017-07-28 07:25 | NUR ---
RECEIVED REPORT FROM DIGITAL ART DIRECTOR NURSE. PATIENT IN STABLE CONDITION, NO DISTRESS NOTED. DENIES ANY PAIN AT THIS TIME. AAOX4, CALM, COOPERATIVE, SKIN COLOR APPROPRIATE TO ETHNICITY, WARM TO TOUCH. LUNGS CTA ON ALL LOBES. ABDOMEN FLAT, NON-TENDER, NON-DISTENDED. SKIN IS INTACT. IV IS INTACT, PATENT, ON SALINE LOCK. REVIEWED PLAN OF CARE WITH PATIENT. PATIENT VERBALIZED UNDERSTANDING. SAFETY MEASURES IN PLACE, CALL LIGHT WITHIN REACH. WILL CONTINUE TO MONITOR PATIENT.
[2017-07-28 07:36] LABS: BASOPHILS # (AUTO) 0.4 K/uL (0.00-0.22); BASOPHILS % (AUTO) 4.6 % (0.0-2.0); EOSINOPHILS # (AUTO) 0.1 K/uL (0-0.4); EOSINOPHILS % (AUTO) 1.1 % (0.0-4.0); HEMATOCRIT 38.3 % (36-48); LYMPHOCYTES # (AUTO) 2.6 K/uL (2.5-16.5); LYMPHOCYTES % (AUTO) 31.3 % (20.5-51.1); MEAN CORPUSCULAR HEMOGLOBIN 30 pg (27-31); MEAN CORPUSCULAR HGB CONC 34 g/dL (33-37); MEAN CORPUSCULAR VOLUME 88 fL (80-94); MONOCYTES # (AUTO) 0.5 K/uL (0.8-1.0); MONOCYTES % (AUTO) 5.8 % (1.7-9.3); NEUTROPHILS # (AUTO) 4.5 K/uL (1.8-7.7); NEUTROPHILS % (AUTO) 57.2 % (42.2-75.2); PLATELET COUNT (AUTO) 280 K/uL (140-450); RED BLOOD CELL COUNT(AUTO) 4.36 MIL/uL (4.20-5.40); RED CELL DISTRIBUTION WIDTH 12.6 % (11.6-13.7); WHITE BLOOD COUNT (AUTO) 8.1 K/uL (4.8-10.8)
[2017-07-28 07:59] LABS: ANION GAP 13.4 (8-16); CARBON DIOXIDE 28.1 mmol/L (21-32); CREATININE 0.7 mg/dL (0.6-1.3); POTASSIUM 3.5 mmol/L (3.5-5.1)
[2017-07-28 08:00] VITALS: BP 122/68
[2017-07-28] MEDS: metFORMIN 500 MG TAB PO SCH (08:56)
[2017-07-28] MEDS: LISINOPRIL 5 MG TAB PO SCH (09:04)
[2017-07-28] MEDS: DOCUSATE SODIUM 100 MG GELCAP PO SCH (09:04)
[2017-07-28] MEDS: ASPIRIN 81 MG TAB.CHEW PO SCH (09:04)
[2017-07-28] MEDS: LACTOBACILLUS RHAMNOSUS GG 1 EACH CAP PO SCH (09:04)
[2017-07-28] MEDS: LORATADINE 10 MG TAB PO SCH (09:04)
--- NOTE | 2017-07-28 09:50 | NUR ---
PATIENT SITTING IN BED COMFORTABLY. NO DISTRESS NOTED. RESPIRATIONS EVEN, UNLABORED, ON ROOM AIR. DENIES ANY PAIN AT THIS TIME. CONDITION UNCHANGED. MEDICATIONS DUE GIVEN. SAFETY MEASURES IN PLACE. WILL CONTINUE TO MONITOR.
[2017-07-28] MEDS: INSULIN LISPRO SLIDING SCALE 100 UNITS/ML VIAL SUBQ PRN (11:56)
[2017-07-28 12:00] VITALS: BP 130/59
--- NOTE | 2017-07-28 12:00 | NUR ---
PATIENT LYING IN BED TALKING WITH FAMILY MEMBERS AT BEDSIDE. NO DISTRESS NOTED. CONDITION UNCHANGED. WILL CONTINUE TO MONITOR.
[2017-07-28] MEDS ORDERED: MAGNESIUM OXIDE 400 MG TAB PO SCH (12:55)
[2017-07-28] MEDS ORDERED: WAST1DEV2 MC (13:16)
[2017-07-28] MEDS ORDERED: LANC-947 MC (13:16)
[2017-07-28] MEDS ORDERED: [UNRECOGNIZED DRUG - CODE] MC (13:16)
[2017-07-28] MEDS ORDERED: LEVEMIR SUBQ (13:16)
[2017-07-28] MEDS ORDERED: GLUC-805 FS (13:16)
--- NOTE | 2017-07-28 13:55 | NUR ---
PATIENT SITTING IN BED. NO DISTRESS NOTED. RESPIRATIONS EVEN, UNLABORED, ON O2 2L/MIN VIA NC. CONDITION UNCHANGED. MEDICATIONS DUE GIVEN. ASSISTED PATIENT IN REPOSITIONING. PAIN WITHIN TOLERABLE AT THIS TIME. SAFETY MEASURES IN PLACE, CALL LIGHT WITHIN REACH. WILL CONTINUE TO MONITOR.
--- NOTE | 2017-07-28 14:30 | NUR ---
DISCHARGE ORDERS ARE IN PLACE. RESIDENT DOCTORS HAVE ALREADY GIVEN PATIENT DISCHARGE INSTRUCTIONS. FAMILY PRESENT AT THIS TIME AND REINFORCED INSTRUCTIONS TO PATIENT WITH FAMILY PRESENT, WHICH INCLUDED TO FOLLOW UP WITH DR SEAMAN ON 07/30 AT 1445, NEW MEDICATION AT [facility] Handle PHARMACY, SIGNS AND SYMPTOMS OF WHEN TO SEEK EMERGENCY MEDICAL ATTENTION. EDUCATION INSTRUCTION HANDOUT GIVEN TO PATIENT. SHE VERBALIZED UNDERSTANDING. DISCONTINUED IV SITE. CATHETER INTACT. DRESSING APPLIED, CLEAN DRY AND INTACT. NO SIGNS AND SYMPTOMS OF ACUTE DISTRESS NOTED AT THIS TIME. PATIENT IS STABLE FOR DISCHARGE. WILL WHEEL PATIENT OUT.
== END 2017-07-28 14:30 | disposition home or self-care (01) | DRG 637 ==
LOC: MED 21:23 → MTU 07-25 00:26
PROVIDERS: ADMIT Family Medicine; ATTEND Family Medicine
DX: E11.00 Type 2 diabetes mellitus with hyperosmolarity without nonketotic hyperglycemic-hyperosmolar coma (NKHHC) (principal); E43 Unspecified severe protein-calorie malnutrition; D68.59 Other primary thrombophilia; E72.51 Non-ketotic hyperglycinemia; E11.51 Type 2 diabetes mellitus with diabetic peripheral angiopathy without gangrene; I11.0 Hypertensive heart disease with heart failure; I50.9 Heart failure, unspecified; E83.42 Hypomagnesemia; I07.1 Rheumatic tricuspid insufficiency; B37.49 Other urogenital candidiasis; E11.65 Type 2 diabetes mellitus with hyperglycemia; I35.1 Nonrheumatic aortic (valve) insufficiency; E87.6 Hypokalemia; E78.5 Hyperlipidemia, unspecified; Z88.0 Allergy status to penicillin; Z90.49 Acquired absence of other specified parts of digestive tract; Z98.891 History of uterine scar from previous surgery; Z68.28 Body mass index [BMI] 28.0-28.9, adult; Z79.4 Long term (current) use of insulin
CPT/HCPCS: 36415; 71010; 80048; 80053; 80305; 81001; 82040; 82150; 82948; 83036; 83690; 83735; 83880; 84100; 84439; 84443; 84484; 85025; 87081; 87086; 93005; 93925; 93970; 96361; 96374; 99285; J0696; J1450; J1815; J3475; J7030; J7060; Q0092

== ENCOUNTER 2017-09-10 20:10 | Emergency (ER) | payer MEDICARE, MEDICAID ==
[~2017-09-10] VITALS: Ht 152.4 cm; Wt 59.1 kg
[~2017-09-10 20:10] MED LIST changes: +ATOR20TA PO; +GLUC-805 FS; +LANC-947 MC; +LEVEMIR SUBQ; +LISI2.5T12 PO; +WAST1DEV2 MC; +[UNRECOGNIZED DRUG - CODE] MC; -[UNRECOGNIZED DRUG - OTHER] PO
[2017-09-10 20:23] VITALS: BP 136/69
[2017-09-10 23:26] VITALS: BP 136/69
[2017-09-11] MEDS ORDERED: ONDANSETRON 4 MG/2 ML VIAL IVP ONE (00:10)
[2017-09-11] MEDS ORDERED: INSULIN HUMAN REGULAR 100 UNITS/ML 10 ML VIAL IVP ONE (00:10)
[2017-09-11] MEDS ORDERED: NACL 0.9% 1,000 ML IV ONE (00:10)
[2017-09-11 00:43] LABS: RED CELL DISTRIBUTION WIDTH 13.1 % (11.6-13.7); WHITE BLOOD COUNT (AUTO) 8.6 K/uL (4.8-10.8)
[2017-09-11 00:54] LABS: HEMATOCRIT 42.6 % (36-48); HEMOGLOBIN 13.9 g/dL (12.0-16.0); MEAN CORPUSCULAR HEMOGLOBIN 29 pg (27-31); MEAN CORPUSCULAR HGB CONC 33 g/dL (33-37); MEAN CORPUSCULAR VOLUME 89 fL (80-94); PLATELET COUNT (AUTO) 296 K/uL (140-450); RED BLOOD CELL COUNT(AUTO) 4.81 MIL/uL (4.20-5.40)
[2017-09-11 01:02] LABS: EOSINOPHILS % (MANUAL) 1 % (0-4); LYMPHOCYTES % (MANUAL) 22 % (20-46); MONOCYTES % (MANUAL) 5 % (5-12)
[2017-09-11 01:05] LABS: ANION GAP 16.4 (8-16); CARBON DIOXIDE 26.1 mmol/L (21-32); CREATININE 0.9 mg/dL (0.6-1.3); POTASSIUM 4.5 mmol/L (3.5-5.1); TOTAL BILIRUBIN 0.4 mg/dL (0.0-1.0)
[2017-09-11 01:06] LABS: ALBUMIN 3.6 g/dL (3.4-5.0)
[2017-09-11 01:16] LABS: PROTHROMBIN TIME 10.3 secs (10.8-13.4)
[2017-09-11 01:37] LABS: APPEARANCE,URINE HAZY (CLEAR); BILIRUBIN,URINE NEGATIVE (NEGATIVE); BLOOD, URINE NEGATIVE (NEGATIVE); COLOR,URINE YELLOW (YELLOW); LEUKOCYTE ESTERASE ,URINE NEGATIVE (NEGATIVE); NITRITE, URINE POSITIVE (NEGATIVE); UGLUCOSE 3+ (NEGATIVE)
[2017-09-11 01:48] LABS: RBC,URINE 0-5 (RARE) /HPF (0-5); WBC,URINE 20-60 /HPF (0-5); YEAST,URINE Few /HPF (None Seen)
== END 2017-09-11 02:30 | disposition left against medical advice (07) ==
LOC: MED 20:10
DX: A08.4 Viral intestinal infection, unspecified (principal); E11.9 Type 2 diabetes mellitus without complications; I10 Essential (primary) hypertension; E78.00 Pure hypercholesterolemia, unspecified; Z79.84 Long term (current) use of oral hypoglycemic drugs; Z79.82 Long term (current) use of aspirin; Z79.899 Other long term (current) drug therapy; Z88.0 Allergy status to penicillin
CPT/HCPCS: 36415; 71045; 80053; 81001; 85025; 85610; 87086; 87186; 87804; 99285; J1815; J2405; J7030

== ENCOUNTER 2018-11-07 22:24 | Emergency (ER) | payer MEDICARE, MEDICAID ==
[~2018-11-07] VITALS: Ht 147.3 cm; Wt 67.6 kg
[2018-11-07 22:46] VITALS: BP 149/70
--- NOTE | 2018-11-07 22:58 | NUR ---
PT W/C ASSISTED TO BED 7
--- NOTE | 2018-11-07 23:00 | NUR ---
68 FEMALE BIB GRANDAUGHTER FOR C/O R WRIST/FOREARM PAIN. GRANDDAUGHTER STATES HER GRANDMOTHER HAD A FALL THAT WAS UNWITNESSED. R FOREARM SWELLING NOTED. DISTAL PULSES INTACT. CAP REFILL>3 SECS SKIN WARM PINK. PT AAOX2, ALBANIAN SPEAKING PRIMARILY. LUNGS CLEAR EVEN BILATERALLY. S1 S2 HEARD, SWELLING TO R FOREARM NOTED. DENIES CP/SOB. ABD SOFT NON DISTENDED. PT DENIES N/V/D. PT VOIDING. SKIN WARM DRY INTACT. PT DENIES FEVER CHILLS. WILL UPDATE ER MD. WILL CONTINUE TO OBSERVE. PMH: RHEUMATOID ARTHRITIS, HYPERTENSION, DM II, MEMORY LOSS ALLERGIES: PENICILLINS
--- NOTE | 2018-11-07 23:37 | NUR ---
Dr. Sanchez evaluating patient at bedside.
[2018-11-07] MEDS ORDERED: IBUPROFEN 800 MG TAB PO ONE (23:50)
[2018-11-08 00:17] VITALS: BP 125/65
--- NOTE | 2018-11-08 00:17 | NUR ---
DDPatient discharged with v/s stable. Written and verbal after care instructions given and explained. Patient alert, oriented and verbalized understanding of instructions. Ambulatory with steady gait. All questions addressed prior to discharge. ID band removed. Patient advised to follow up with PMD. Rx of MOTRIN given. Patient educated on indication of medication including possible reaction and side effects. Opportunity to ask questions provided and answered.
== END 2018-11-08 00:17 | disposition home or self-care (01) ==
LOC: MED 22:24
DX: M25.531 Pain in right wrist (principal); M79.641 Pain in right hand; E11.9 Type 2 diabetes mellitus without complications; I10 Essential (primary) hypertension; Z79.84 Long term (current) use of oral hypoglycemic drugs; Z88.0 Allergy status to penicillin; Z79.82 Long term (current) use of aspirin; Z79.899 Other long term (current) drug therapy; Z79.1 Long term (current) use of non-steroidal anti-inflammatories (NSAID)
CPT/HCPCS: 29125; 73110; 99283; Q0092

== ENCOUNTER 2019-03-18 20:53 | Emergency (ER) | payer MEDICARE, MEDICAID ==
[~2019-03-18] VITALS: Ht 152.4 cm; Wt 68.0 kg
[2019-03-18 21:00] VITALS: BP 146/77
--- NOTE | 2019-03-18 21:06 | NUR ---
68 Y/O FEMALE BIB FAMILY PRESENTS TO ED WITH C/O CP WITH COUGHING X5 DAYS. LUNGS CLEAR BILAT THROUGHOUT. NON-PRODUCTIVE COUGH PRESENT. AFEBRILE WTIH VSS. NON-RADIATING CP. PAIN DESCRIBED BURNING WITH DEEP BREATHING OR COUGHING. POSITIONED IN BED WITH HOB ELEVATED. ER MD AWARE. FAMILY AT BEDSIDE. CONTINUE TO MONITOR.
--- NOTE | 2019-03-18 21:06 | NUR ---
PT TAKEN TO BED 12
[2019-03-18] MEDS ORDERED: IBUPROFEN 400 MG TAB PO ONE (21:10)
[2019-03-18] MEDS ORDERED: ALBUTEROL SULFATE/IPRATROPIU 3 ML SOL IH ONE (21:10)
[2019-03-18] MEDS ORDERED: MEMA10TA PO (21:10)
--- NOTE | 2019-03-18 21:13 | NUR ---
Respiratory Therapist at bedside for respiratory intervention.
[2019-03-18 22:35] VITALS: BP 157/77
--- NOTE | 2019-03-18 22:35 | NUR ---
DISCHARGE PAPERS GIVEN TO PT. RX OF ALBUTEROL INH, PROMETHAZINE GIVEN. SIDE EFFECTS EXPLAINED. INSTUCTED TO F/U WITH PCP AND WHEN TO RETURN TO ER. PT AND FAMILY VERBALLIZED UNDERSTANDIN OF DC INSTRUCTIONS. ALL QUESTIONS ANSWERED.
== END 2019-03-18 22:35 | disposition home or self-care (01) ==
LOC: MED 20:53
DX: J40 Bronchitis, not specified as acute or chronic (principal); R51 Headache; J45.909 Unspecified asthma, uncomplicated; E11.9 Type 2 diabetes mellitus without complications; I10 Essential (primary) hypertension; E78.5 Hyperlipidemia, unspecified; Z79.4 Long term (current) use of insulin; Z79.899 Other long term (current) drug therapy; Z88.0 Allergy status to penicillin
CPT/HCPCS: 71045; 94640; 99283; J7620

== ENCOUNTER 2019-07-28 15:46 | Inpatient (IN) | payer MEDICARE, MEDICAID ==
[~2019-07-28] VITALS: Ht 147.3 cm; Wt 56.2 kg
[~2019-07-28 15:46] MED LIST changes: +MEMA10TA PO
[2019-07-28 15:53] VITALS: BP 159/87
--- NOTE | 2019-07-28 16:25 | NUR ---
68/F PRESENTS TO THE ED WITH N/V X 3 HOURS, APPETITIE CHANGES X 3 DAYS AND ABD PAIN/ BODYACHES. PT STATES THAT HER ABD HURTS AND RATES PAIN 2/10 AT THIS TIME. LAST BM WAS 07/28/19. BOWEL SOUNDS ACTIVE IN ALL QUADRANTS. FAMILY MEMBERS AT BEDSIDE. PTS KIN IS PINK, WARM, AND DRY. PTS SPEECH IS CLEAR. FAMILY MEMBERS AT BEDSIDE. PT POSITIONED FOR COMFORT, HOB ELEVATED, BED RAIL UP X 1. ER MD TO SEE PT. ALLERGY: PENICILLIN HX: HTN, HIGH CHOLESTROL, DM, RA. TX: LISINOPRIL,ATORVASTATINE,ASPIRIN,DONEPEZIL HCL,MEMANTINE HCL,METFORMIN
--- NOTE | 2019-07-28 17:01 | NUR ---
LAB AT BEDSIDE.
[2019-07-28 17:18] LABS: BASOPHILS % (AUTO) 0.4 % (0.0-2.0); EOSINOPHILS # (AUTO) 0.1 K/uL (0-0.4); EOSINOPHILS % (AUTO) 0.6 % (0.0-4.0); HEMATOCRIT 38.1 % (36-48); HEMOGLOBIN 12.6 g/dL (12.0-16.0); LYMPHOCYTES # (AUTO) 2.7 K/uL (2.5-16.5); LYMPHOCYTES % (AUTO) 28.8 % (20.5-51.1); MEAN CORPUSCULAR HEMOGLOBIN 29 pg (27-31); MEAN CORPUSCULAR HGB CONC 33 g/dL (33-37); MEAN CORPUSCULAR VOLUME 86.8 fL (80-94); MONOCYTES # (AUTO) 0.3 K/uL (0.8-1.0); MONOCYTES % (AUTO) 2.9 % (1.7-9.3); NEUTROPHILS # (AUTO) 6.3 K/uL (1.8-7.7); NEUTROPHILS % (AUTO) 67.3 % (42.2-75.2); PLATELET COUNT (AUTO) 291 K/uL (140-450); RED BLOOD CELL COUNT(AUTO) 4.39 MIL/uL (4.20-5.40); RED CELL DISTRIBUTION WIDTH 14.6 % (11.6-13.7); WHITE BLOOD COUNT (AUTO) 9.4 K/uL (4.8-10.8)
--- NOTE | 2019-07-28 17:32 | NUR ---
FAMILY AT BEDSIDE WITH PT. PT RESTING AND SPEAKING WITH FAMILY.
[2019-07-28 17:38] LABS: ANION GAP 12.4 (8-16); CARBON DIOXIDE 29.8 mmol/L (21-32); CREATININE 0.7 mg/dL (0.6-1.3); POTASSIUM 4.2 mmol/L (3.5-5.1)
[2019-07-28 17:44] LABS: ALBUMIN 3.3 g/dL (3.4-5.0); TOTAL BILIRUBIN 0.3 mg/dL (0.0-1.0)
[2019-07-28 17:49] LABS: CREATINE KINASE MB 1.1 ng/mL (0-3.6)
[2019-07-28] MEDS ORDERED: NACL 0.9% 1,000 ML IV ONE (19:00)
[2019-07-28] MEDS ORDERED: LEVOFLOXACIN 750 MG/D5W PREMIX 150 ML IV ONE (19:00)
[2019-07-28] MEDS ORDERED: ASPIRIN 325 MG TAB PO ONE (19:00)
--- NOTE | 2019-07-28 19:17 | NUR ---
LAB AT BEDSIDE
[2019-07-28] MEDS ORDERED: DONE10TA37 PO (19:42)
--- NOTE | 2019-07-28 20:44 | NUR ---
FAMILY AT BEDSIDE WITH PT. PT IS TALKING WITH FAMILY AND RESTING.
[2019-07-28 21:20] VITALS: BP 119/58
--- NOTE | 2019-07-28 21:21 | NUR ---
RECIVED PT FROM ED; TELE UNIT. AWAKE ALERT O X 3, WITH CONFUSION. PT HAS DEMENTIA; PT WITH IV ON THE RIGHT HAND G 22 INFUSING LEVAQUIN, PATENT. EXPLAINED TO NANCY CHAU POC OF PT. PT AND FAMILY INSERSTOOD. PLACED ON LOW BED. CALL LIGHT WITHIN REACH. WILL MONITOR
[2019-07-28] MEDS ORDERED: MORPHINE SULFATE 4 MG/ML SYR IVP PRN (21:25)
[2019-07-28] MEDS ORDERED: DEXTROSE 50% 50 ML SYR IVP PRN (21:25)
[2019-07-28] MEDS ORDERED: ONDANSETRON 4 MG/2 ML VIAL IVP PRN (21:25)
[2019-07-28] MEDS ORDERED: HYDROcodone/APAP 5/325 MG 1 TAB TAB PO PRN (21:25)
[2019-07-28] MEDS ORDERED: ACETAMINOPHEN 325 MG TAB PO PRN (21:25)
[2019-07-28] MEDS ORDERED: ALBUTEROL 0.083% 2.5 MG/3 ML NEBU INH PRN (21:25)
--- NOTE | 2019-07-28 21:28 | NUR ---
Patient will be admitted to care of DR CALL. Admited to TELE. Will go to [id number]. Belongings list completed. Report to BRIANNA FAUSTIN.
--- NOTE | 2019-07-28 22:00 | NUR ---
PT LACTIC ACID 2.3 CHRISTIANO CARNES; WILL INFORM DR. RABAGO IN THE AM. PT IS ON NS AT 75 ML/HR. NO SIGNS AND SYMPTOMS OF DISTRESS Addendum: 07/28/19 at 2250 by Cheyenne Fiore RN TRENDING DOWN
[2019-07-28] MEDS: NACL 0.9% 1,000 ML IV SCH (22:23)
--- NOTE | 2019-07-28 22:45 | NUR ---
HISTORY PROVIDED BY SON, ISAC. ALSO ASKED HIM HIS CONTACT NO. [id number]. SON WANTS HIS MOM TO RECEIVE PNA AND FLU VACCINE UPON D/C
[2019-07-29] VITALS: BP 120/60
--- NOTE | 2019-07-29 00:20 | NUR ---
PATIENT WENT TO THE BATHROOM W/ MINIMAL ASSIST X 1 PERSON. PATIENT ABLE TO AMBULATE TO BATHROOM. PT ALWAYS ASKING WHY SHE I SN IN THE HOSPITAL, SHE KEEPS FORGETTING. EVEN WHEN EARLIER SHE WAS ORIENTED BY SON, ISAC
--- NOTE | 2019-07-29 02:58 | NUR ---
PATIENT SLEEPING, NO COMPLAINTS AT THIS TIME, NOT IN RESPIRATORY DISTRESS. WILL CONTINUE TO MONITOR
[2019-07-29 04:00] VITALS: BP 121/56
[2019-07-29 04:11] LABS: BASOPHILS % (AUTO) 0.4 % (0.0-2.0); EOSINOPHILS # (AUTO) 0.2 K/uL (0-0.4); EOSINOPHILS % (AUTO) 1.7 % (0.0-4.0); HEMATOCRIT 33.8 % (36-48); HEMOGLOBIN 11.2 g/dL (12.0-16.0); LYMPHOCYTES # (AUTO) 3.5 K/uL (2.5-16.5); LYMPHOCYTES % (AUTO) 31.5 % (20.5-51.1); MEAN CORPUSCULAR HEMOGLOBIN 29 pg (27-31); MEAN CORPUSCULAR HGB CONC 33 g/dL (33-37); MEAN CORPUSCULAR VOLUME 86.5 fL (80-94); MONOCYTES # (AUTO) 0.6 K/uL (0.8-1.0); MONOCYTES % (AUTO) 5.4 % (1.7-9.3); NEUTROPHILS # (AUTO) 6.8 K/uL (1.8-7.7); PLATELET COUNT (AUTO) 248 K/uL (140-450); RED BLOOD CELL COUNT(AUTO) 3.91 MIL/uL (4.20-5.40); RED CELL DISTRIBUTION WIDTH 14.6 % (11.6-13.7); WHITE BLOOD COUNT (AUTO) 11.2 K/uL (4.8-10.8)
[2019-07-29 04:28] LABS: ANION GAP 11.3 (8-16); CARBON DIOXIDE 29.1 mmol/L (21-32); CREATININE 0.6 mg/dL (0.6-1.3); POTASSIUM 3.4 mmol/L (3.5-5.1)
[2019-07-29 04:29] LABS: MAGNESIUM 1.2 mg/dL (1.8-2.4); PHOSPHORUS 3.2 mg/dL (2.5-4.9)
[2019-07-29] MEDS: BLOOD GLUCOSE MONITORING 1 DEV DEV FS SCH ×4 (06:00→17:28)
[2019-07-29] MEDS: INSULIN LISPRO SLIDING SCALE 100 UNITS/ML VIAL SUBQ PRN ×3 (06:22→17:30)
--- NOTE | 2019-07-29 06:56 | NUR ---
PT IN STABLE CONDITION WILL ENDORSE TO NEXT SHIFT
--- NOTE | 2019-07-29 07:20 | NUR ---
RECEIVED BEDSIDE REPORT FROM WILLOW MACHINE TENDER NURSE. PATIENT IS AWAKE AND ALERT AND ORIENTED TIMES 3, NO SIGNS OF DISTRESS ON ROOM AIR. SKIN IS INTACT. AMBULATE WITH ASSIST. FALL RISK PROTOCOL IN PLACE. RIGHT HAND 22 GAUGE INFUSING NS AT 75 ML/HR CLEAN DRY AND INTACT. BED IN LOW POSITION, CALL LIGHT WITHIN REACH, WILL CONTINUE TO MONITOR FOR SAFETY.
[2019-07-29 08:00] VITALS: BP 152/61
--- NOTE | 2019-07-29 08:22 | NUR ---
PATIENT HAS BEEN SCREENED AND CATEGORIZED MODERATE NUTRITION RISK. PATIENT WILL BE SEEN WITHIN 3-5 DAYS OF ADMISSION. 07/31/19 08/02/[address]
[2019-07-29] MEDS ORDERED: INSULIN LANTUS 100 UNITS/ML 10 ML VIAL SUBQ SCH (09:00)
[2019-07-29] MEDS ORDERED: ASPIRIN 81 MG TAB.CHEW PO SCH (09:00)
[2019-07-29] MEDS ORDERED: DONEPEZIL 10 MG TAB PO SCH (09:00)
[2019-07-29] MEDS ORDERED: LISINOPRIL 5 MG TAB PO SCH (09:00)
[2019-07-29] MEDS ORDERED: MEMANTINE 10 MG TAB PO SCH (09:00)
--- NOTE | 2019-07-29 09:51 | NUR ---
MEDICATIONS GIVEN, PATIENT TOLERATED WELL, EDUCATED ON SIDE EFFECTS WILL CONTINUE TO MONITOR, DAUGHTER AT BEDSIDE.
[2019-07-29] MEDS: NACL 0.9% 1,000 ML IV SCH (10:44)
[2019-07-29] MEDS: MAG SULF 2000 MG/WATER PREMIX 100 ML IV SCH ×2 (10:47→13:50)
[2019-07-29 12:00] VITALS: BP 152/68
[2019-07-29] MEDS ORDERED: POTASSIUM CHLORIDE 10 MEQ TABER PO SCH (12:17)
--- NOTE | 2019-07-29 12:30 | NUR ---
MEDICATIONS ADMINISTERED, PATIENT TOLERATED WELL, EDUCATED ON SIDE EFFECTS, WILL CONTINUE TO MONITOR.
--- NOTE | 2019-07-29 13:50 | NUR ---
ADMINISTERED MEDS. PATIENT TOLERATED WELL. WILL CONTINUE TO MONITOR
--- NOTE | 2019-07-29 14:13 | NUR ---
DC [age]YRS OLD FEMALE ADMITTED FROM HOME WITH A DX OF CHEST PAIN. PT HAS A HX OF DEMENTIA AND DM . CARDIAC PANEL -TROPONIN NEGATIVE X 2 NO CLINICAL HISTORY TO SUGGEST ANGINA , DC PLAN PER MD TO GO HOME TODAY AND TO FOLLOW UP WITH PCP 2-4 WEEKS CM TO FOLLOW
--- NOTE | 2019-07-29 15:00 | NUR ---
RESTING IN BED NO SIGNS OF DISTRESS.
[2019-07-29 15:58] VITALS: BP 152/69
[2019-07-29 16:00] VITALS: BP 153/82
[2019-07-29] MEDS ORDERED: ESOM40EC PO (16:48)
[2019-07-29] MEDS ORDERED: PNEUMOCOCCAL VACCINE 23 MCG/0.5 ML VIAL IMVAC SCH (17:00)
[2019-07-29] MEDS ORDERED: INFLUENZA VACCINE QUAD 0.5 ML SYR IMVAC PRN (17:00)
--- NOTE | 2019-07-29 17:35 | NUR ---
DISCHARGE EDUCATION PROVIDED, EDUCATED ON DISEASE PROCESS, ABN SIGNS AND SYMPTOMS, WHEN TO GO TO ER, EDUCATED ON FOLLOW UP WITH PCP WITHIN 2-3 WEEKS, EDUCATED ON MEDICATIONS, DISCHARGE PRESCRIPTIONS GIVEN. PNEUMONIA AND FLU VACCINE GIVEN. EDUCATED DAUGHTER IN LAW DUE TO PATIENT HAVING ALZHEIMERS, DAUGHTER IN LAW SIGNED ALL PAPERWORK. PATIENT TO EAT DINNER AND IV REMOVED, TIP INTACT. WILL CONTINUE TO MONITOR.
--- NOTE | 2019-07-29 18:20 | NUR ---
PATIENT DISCHARGED IN STABLE CONDITION WITH FAMILY, PATIENT DISCHARGED HOME, ID BANDS WERE REMOVED AND TELE MONITOR.
[2019-07-29] MEDS ORDERED: LEVOFLOXACIN 750 MG/D5W PREMIX 150 ML IV SCH (20:00)
[2019-07-29] MEDS ORDERED: ATORVASTATIN 20 MG TAB PO SCH (21:00)
== END 2019-07-29 18:20 | disposition home or self-care (01) | DRG 391 ==
LOC: MED 15:46 → MTU 20:36
PROVIDERS: ADMIT Internal Medicine Pulmonary Disease; ATTEND Internal Medicine Pulmonary Disease
PROC: 3E02340 Introduction of Influenza Vaccine into Muscle, Percutaneous Approach (ICD-10-PCS; principal; 2019-07-29)
PROC: 3E0234Z Introduction of Serum, Toxoid and Vaccine into Muscle, Percutaneous Approach (ICD-10-PCS; 2019-07-29)
DX: K21.9 Gastro-esophageal reflux disease without esophagitis (principal); J18.9 Pneumonia, unspecified organism; E11.9 Type 2 diabetes mellitus without complications; I10 Essential (primary) hypertension; G30.9 Alzheimer's disease, unspecified; F02.80 Dementia in other diseases classified elsewhere, unspecified severity, without behavioral disturbance, psychotic disturbance, mood disturbance, and anxiety; E78.00 Pure hypercholesterolemia, unspecified; M19.90 Unspecified osteoarthritis, unspecified site; Z88.0 Allergy status to penicillin; Z79.899 Other long term (current) drug therapy; Z23 Encounter for immunization
CPT/HCPCS: 36415; 71045; 80048; 80053; 82550; 82553; 82948; 83036; 83605; 83690; 83735; 84100; 84484; 85025; 87040; 87081; 90732; 93005; 96365; 99285; J1815; J1956; J3475; J7030; Q0092

== ENCOUNTER 2019-07-30 02:27 | Emergency (ER) | payer MEDICARE, MEDICAID ==
[~2019-07-30] VITALS: Ht 149.9 cm; Wt 63.5 kg
[~2019-07-30 02:27] MED LIST changes: +DONE10TA37 PO; +ESOM40EC PO; -IBUP-974 PO
[2019-07-30 02:30] VITALS: BP 131/98
[2019-07-30] MEDS: DICYCLOMINE HCL LIQUID 10 MG/5 ML UDC PO ONE (03:14)
[2019-07-30] MEDS: LIDOCAINE VISCOUS 2% 20 ML UDC PO ONE (03:15)
[2019-07-30] MEDS: ALUMINUM HYD/MAG/SIMETHICONE 30 ML UDC PO ONE (03:15)
[2019-07-30] MEDS: LORazepam 2 MG/ML VIAL IM ONE (03:16)
[2019-07-30] MEDS: FLUMAZENIL 0.5 MG/5 ML VIAL IVP ONE (05:32)
[2019-07-30 10:24] VITALS: BP 97/72
== END 2019-07-30 10:24 | disposition home or self-care (01) ==
LOC: MED 02:27
DX: K21.9 Gastro-esophageal reflux disease without esophagitis (principal); F41.9 Anxiety disorder, unspecified; E11.9 Type 2 diabetes mellitus without complications; I10 Essential (primary) hypertension; E78.5 Hyperlipidemia, unspecified; Z79.899 Other long term (current) drug therapy; Z79.4 Long term (current) use of insulin; Z88.0 Allergy status to penicillin
CPT/HCPCS: 71045; 93005; 96372; 96374; 99283; J2060; J3490; Q0092

== ENCOUNTER 2019-09-15 17:28 | Emergency (ER) | payer MEDICARE, MEDICAID ==
[~2019-09-15] VITALS: Ht 149.9 cm; Wt 65.8 kg
[2019-09-15 18:10] VITALS: BP 147/66
--- NOTE | 2019-09-15 19:53 | NUR ---
pt ambulated to bed 11
--- NOTE | 2019-09-15 19:58 | NUR ---
69 y/o female bib granddaughter right great toenail pain , nail is falling off , slight edema to nailbed x yesterday. Purulent drainage noted. Pain is a 10/10; pedal pulses 2+; Palpation tender to touch. Slight edema noted. Ambulation with assistance. Per patient's granddaughter, " She fell 2 days ago and that's why her toe got swollen. It looks like it's falling off". ERMD made aware of status. Side railsx1. Granddaughter at bedside. Will continue to monitor. hx--dm, htn, ra, hyperlipidemia; gerd rx: Albuterol; naproxen; donepezil; asa; memantine; lisinoprl; atorvastatin; citalopram
[2019-09-15] MEDS ORDERED: BACITRACIN OINT 500 UNITS/GM PKT TP ONE (21:45)
[2019-09-15 22:00] VITALS: BP 138/67
== END 2019-09-15 22:00 | disposition home or self-care (01) ==
LOC: MED 17:28
DX: S91.239A Puncture wound without foreign body of unspecified toe(s) with damage to nail, initial encounter (principal); E11.9 Type 2 diabetes mellitus without complications; K21.9 Gastro-esophageal reflux disease without esophagitis; I10 Essential (primary) hypertension; E78.00 Pure hypercholesterolemia, unspecified; Z79.899 Other long term (current) drug therapy; Z88.0 Allergy status to penicillin; W19.XXXA Unspecified fall, initial encounter; Y93.89 Activity, other specified; Y92.89 Other specified places as the place of occurrence of the external cause; Y99.8 Other external cause status
CPT/HCPCS: 73660; 99283